=== PATIENT | male | born 1985 | race African-American/Black ===

== ENCOUNTER 2023-07-01 12:20 | Emergency (ER) | payer SELFPAY ==
[2023-07-01 12:30] VITALS: BP 167/95; PULSE 105; RESP 20; TEMP 98.2; BMI 36.3
== END 2023-07-01 14:14 | disposition home or self-care (01) ==
LOC: JERFT 12:20
DX: Z03.89 Encounter for observation for other suspected diseases and conditions ruled out (principal)
CPT/HCPCS: 99282-25